=== PATIENT | female | born 1975 | race Caucasian/White ===

== ENCOUNTER 2016-12-08 13:42 | Outpatient (CLI) | payer SELFPAY ==
--- NOTE | 2016-12-08 16:01 | Mammography Report ---
Screening mammogram: Baseline examination. Routine views demonstrates an intermediate density fibroglandular pattern with a generally symmetric distribution. In the superior right breast however there is a partially circumscribed focal asymmetry. The findings are not otherwise remarkable in either breast. CAD used. Impression: Right breast asymmetry. Recommendation: Right breast ultrasound. If this is not a simple cyst additional mammographic compression views needed. BI-RADS CATEGORY: 0 = Needs additional imaging evaluation ACR BI-RADS MAMMOGRAPHIC CODES: 0 = Needs additional imaging evaluation; 1 = Negative; 2 = Benign; 3 = Probably benign; 4 = Suspicious; 5 = Malignant; 6 = Known biopsy-proven malignancy COMMENT: 1. Dense breast tissue, i.e., adenosis, fibrocystic changes, etc., may obscure an underlying neoplasm. 2. Approximately 10% of cancers are not detected with mammography. 3. A negative mammography report should not delay biopsy if a clinically suspicious mass is present.
== END 2016-12-08 13:43 | disposition home or self-care (01) ==
LOC: MAMMO 13:42
DX: Z12.31 Encounter for screening mammogram for malignant neoplasm of breast (principal)
CPT/HCPCS: 77067; G0202

== ENCOUNTER 2017-05-01 10:12 | Day surgery (SDC) | payer SELFPAY ==
[2017-04-27 12:24] LABS: Basophils % (Auto) 0.3 % (0.0-1.8); Eosinophils # (Auto) 0.1 K/mm3 (0.0-0.4); Eosinophils % (Auto) 1.6 % (0.0-4.3); Hematocrit 30.7 % (30.3-42.9); Hemoglobin 10.3 gm/dl (10.1-14.3); Lymphocytes # (Auto) 1.4 K/mm3 (1.2-5.4); Lymphocytes % (Auto) 30.8 % (13.4-35.0); Mean Corpuscular HGB Conc 34 % (30-34); Mean Corpuscular Hemoglobin 27 pg (28-32); Mean Corpuscular Volume 81 fl (79-97); Monocytes # (Auto) 0.3 K/mm3 (0.0-0.8); Platelet Count 249 K/mm3 (140-440); Red Blood Count 3.81 M/mm3 (3.65-5.03)
[2017-04-27 12:45] LABS: Alanine Aminotransferase 12 units/L (7-56); Albumin 4.5 g/dL (3.9-5); BUN/Creatinine Ratio 30; Blood Urea Nitrogen 18 mg/dL (7-17); Calcium 9.2 mg/dL (8.4-10.2); Hemolysis Index 3; Lipase 42 units/L (13-60)
--- NOTE | 2017-04-27 12:48 | Anesthesia Consultation ---
Anesthesia Consult and Med Hx - Airway Anesthetic Teeth Evaluation: Good ROM Head & Neck: Adequate Mental/Hyoid Distance: Adequate Mallampati Class: Class II Intubation Access Assessment: Good - Pulmonary Exam CTA: Yes - Cardiac Exam Cardiac Exam: RRR - Pre-Operative Health Status ASA Pre-Surgery Classification: ASA2 Proposed Anesthetic Plan: General - Cardiovascular System Hx Hypertension: Yes (4 YEARS) - Central Nervous System Hx Psychiatric Problems: No - Other Systems Hx Alcohol Use: No Hx Substance Use: No Hx Cancer: No
[~2017-05-01 10:12] MED LIST: MARCAINE 0.5% INFILTRATI ONE; NACL 0.9% 1000 ML 1,000 ML IV SCH; NACL 0.9% IR ONE
[2017-05-01] MEDS ORDERED: ceFAZolin 2 GM in NACL 0.9% 100 ML IV ONE (11:00)
[2017-05-01] MEDS ORDERED: MARCAINE 0.5% 30 ML INFILTRATI ONE (11:55)
[2017-05-01] MEDS ORDERED: ANCEF/STERILE WATER 2 GM/20 ML 2 GM/20 ML SYRINGE IV NR (12:00)
[2017-05-01] MEDS ORDERED: ZEMURON IV ONE ×3 (12:17→13:39)
[2017-05-01] MEDS ORDERED: DIPRIVAN 10 MG/ML IV ONE (12:17)
[2017-05-01] MEDS ORDERED: SUBLIMAZE ONE (12:19)
[2017-05-01] MEDS ORDERED: VERSED ONE (12:23)
[2017-05-01] MEDS ORDERED: XYLOCAINE MPF 2% ONE (12:30)
[2017-05-01] MEDS ORDERED: QUELICIN ONE (12:32)
[2017-05-01] MEDS ORDERED: ZOFRAN ONE ×2 (12:32→14:19)
[2017-05-01] MEDS ORDERED: ePHEDrine SULFATE ONE (12:38)
[2017-05-01] MEDS ORDERED: NEOSTIGMINE ONE (13:39)
--- NOTE | 2017-05-01 13:50 | Discharge Summary ---
Short Stay Discharge Plan Activity: other (observe x 4 hrs. then june d/c if stable. ice chips today. cl liq in am. solid low fat diet in 48hr. keep dressings dry x 5 days. no lifting over 5 lbs x 2 wks) Weight Bearing Status: Partial Weight Bearing Diet: other Wound: keep clean and dry Additional Instructions: aleve I po q 6-8 hrs prn for breakthrough pain Follow up with: ESTEFANIA PABLO MD [Staff Physician] - 7 Days
[2017-05-01] MEDS ORDERED: TORADOL ONE (13:53)
[2017-05-01] MEDS ORDERED: ZOFRAN IV ONE (14:31)
[2017-05-01] MEDS: DILAUDID IV PRN ×2 (14:35→14:56)
--- NOTE | 2017-05-01 15:01 | Operative Report ---
PREOPERATIVE DIAGNOSIS: Gallbladder disease. POSTOPERATIVE DIAGNOSIS: Gallbladder disease. PROCEDURE: Laparoscopic cholecystectomy. SURGEON: Kapil Hadley MD [employer]PER[employer]: Dr. Villalobos. ANESTHESIA: General. ESTIMATED BLOOD LOSS: Minimal. No drains or complications. PROCEDURE IN DETAIL: The patient was taken to the operating room, prepped and draped in usual sterile fashion. Veress needle was inserted and CO2 insufflation begun. A 5 mm trocar was then inserted and camera inserted. All other trocars were inserted under direct visualization. Gallbladder was noted to be quite distended and had to be decompressed with laparoscopic needle. Approximately 70 mL of bilious clear greenish bowel was obtained. Gallbladder was then grasped at the fundus and retracted towards the right subphrenic space. A fair amount of filmy omental adhesions were noted throughout the undersurface of the gallbladder. These were slowly dissected free and the entire gallbladder exposed. The gallbladder was then also grasped at the infundibulum and retracted towards the right subphrenic space. The entire Calot's triangle was then dissected free. The cystic artery and duct were delineated in their entire course. Both were then doubly clipped and transected. Hook electrocautery was used to dissect the gallbladder from the overlying liver bed. Prior to complete removal, the liver bed was inspected for bleeding and noted to be dry. The cystic duct and artery stumps were once again visualized and clips noted to be securely in place with no evidence of bleeding or bile leak. Gallbladder was then completely freed and brought out through the subxiphoid port. This area was inspected for bleeding and noted to be dry. Subxiphoid trocar was then gently reinserted. All other 5 mm ports were then removed under direct visualization. No bleeding or oozing noted. Subxiphoid trocar was then used to expel the CO2 and the trocar removed. The fascia at this site was closed with a [id number] 0 Vicryl suture. The skin in all port sites was closed with subcuticular 4-0 Vicryl. A 0.5% Marcaine was infiltrated over the port site for postoperative pain relief. The patient tolerated the procedure well and left OR in stable condition. [facility]# [id number] WENCESLAO/ABDIRASHID
--- NOTE | 2017-05-01 16:06 | Anesthesia Day of Surgery ---
Anesthesia Day of Surgery - Day of Surgery Patient Examined: Yes Patient H&P Reviewed: Yes Patient is NPO: Yes
--- NOTE | 2017-05-01 16:06 | Post Anesthesia Evaluation ---
- Post Anesthesia Evaluation Patient Participated: Yes Airway Patent: Yes Stable Respiratory Function: Yes Nausea/Vomiting: No Temp > 96.8F: Yes Pain Manageable: Yes Adequeate Hydration: Yes Anesthesia Complications: No
[2017-05-01] MEDS ORDERED: NORCO 5/325 PO ONE (16:16)
[2017-05-01 18:43] VITALS: BP 114/74
== END 2017-05-01 18:05 | disposition home or self-care (01) ==
LOC: OR 10:12
PROVIDERS: ATTEND Surgery
DX: K80.10 Calculus of gallbladder with chronic cholecystitis without obstruction (principal); I10 Essential (primary) hypertension; Z79.899 Other long term (current) drug therapy; E11.9 Type 2 diabetes mellitus without complications
CPT/HCPCS: 36415; 47562; 80053; 81025; 82150; 82962; 83690; 84703; 85025; 87075; 87116; 88304; A4217; J0330; J0690; J1170; J1885; J2250; J2405; J2704; J2710; J3010; J7030